=== PATIENT | female | born 1965 | race African-American/Black ===

== ENCOUNTER 2017-12-25 14:46 | Emergency (ER) | payer OTHER ==
[~2017-12-25] VITALS: Ht 160 cm; Wt 91.9 kg
[~2017-12-25 14:46] MED LIST: AUGMENTIN875 MG PO; KEFLEX500 MG PO; MOTRIN600 MG PO
[2017-12-25 15:14] LABS: HEMATOCRIT 40.1 % (36.0-46.0); HEMOGLOBIN 13.7 G/DL (11.9-15.5); MCH 29.8 PG (29.0-34.0); MCHC 34.2 G/DL (30.0-36.0); MCV 87.4 FL (83-99); PLATELET COUNT 249 K/uL (156-360); RBC DIS.WIDTH-CV 13.2 % (11.8-14.6); RBC DIS.WIDTH-SD 41.6 % (39-53); RED BLOOD COUNT 4.59 M/uL (3.80-5.20); WHITE BLOOD COUNT 6.2 K/uL (4.1-10.2)
[2017-12-25 15:28] LABS: ALBUMIN 4.2 g/dL (3.2-4.8)
[2017-12-25 15:29] LABS: CHLORIDE 105 mEq/L (99-109); POTASSIUM 4.2 mEq/L (3.7-5.4); SODIUM 138 mEq/L (136-147)
[2017-12-25 15:31] LABS: GLUCOSE 96 mg/dL (70-99); TOTAL PROTEIN 7.5 g/dL (6.4-8.3)
[2017-12-25 15:33] LABS: TOTAL BILIRUBIN 0.3 mg/dL (0.0-1.0)
[2017-12-25 15:34] LABS: ALKALINE PHOSPHATASE 113 IU/L (3-129)
[2017-12-25 15:35] LABS: CREATININE 0.7 mg/dL (0.6-1.3); GFR ESTIMATE (CALCULATED) > 59 mL/min/
[2017-12-25 15:36] LABS: AST (GOT) 17 IU/L (2-34); UREA NITROGEN (BUN) 8 mg/dL (9-23)
[2017-12-25 15:37] LABS: ALT (GPT) 22 IU/L (3-49)
[2017-12-25 15:44] LABS: QUANTITATIVE HCG < 4.0 MIU/ML
[2017-12-25 15:54] LABS: APPEARANCE CLEAR ((CLEAR)); BILIRUBIN NEGATIVE; BLOOD SMALL; COLOR YELLOW ((YELLOW)); GLUCOSE (STRIP) NEGATIVE; KETONES NEGATIVE; LEUKOCYTES NEGATIVE; NITRITE NEGATIVE; PROTEIN (STRIP) NEGATIVE; SPECIFIC GRAVITY 1.012 (1.000-1.030); UROBILINOGEN 0.2 MG/DL (0.2-1.0)
[2017-12-25 15:56] LABS: BACTERIA RARE /HPF; EPITHELIAL CELLS RARE /HPF; MUCUS TRACE /LPF; RED BLOOD CELLS 0-5 /HPF (0-5); UCUL ADDED? NO; WHITE BLOOD CELLS 0-5 /HPF (0-5)
[2017-12-25 16:07] LABS: LIPASE 58 U/L (1.0-51.0)
[2017-12-25] MEDS ORDERED: NEXIUM20 MG PO (19:46)
[2017-12-25 20:01] VITALS: BP 146/70
== END 2017-12-25 20:01 | disposition home or self-care (01) ==
LOC: EME 14:46
DX: K21.9 Gastro-esophageal reflux disease without esophagitis (principal); K27.9 Peptic ulcer, site unspecified, unspecified as acute or chronic, without hemorrhage or perforation; J45.909 Unspecified asthma, uncomplicated
CPT/HCPCS: 76705; 80053; 81003; 83690; 84702; 85027; 99281; 99284